=== PATIENT | female | born 1990 | race Caucasian/White ===

== ENCOUNTER 2024-03-25 11:27 | Emergency (ER) | payer OTHER ==
[~2024-03-25] VITALS: Ht 157.5 cm; Wt 83.9 kg
[2024-03-25 11:51] VITALS: BP 126/94; PULSE 72; RESP 16; TEMP 97.6; O2SAT 99
[2024-03-25] MEDS: KETOROLAC 30 MG/ML VIAL IM ONE (13:07)
[2024-03-25] MEDS: BACITRACIN OINT 500 UNITS/GM PKT TP ONE (13:09)
[2024-03-25] MEDS ORDERED: BACI-418 TP (13:41)
[2024-03-25] MEDS ORDERED: IBUP-2213 PO (13:41)
[2024-03-25 13:48] VITALS: BP 122/92; PULSE 71; RESP 14; TEMP 98; O2SAT 98
== END 2024-03-25 13:48 | disposition home or self-care (01) ==
LOC: MED 11:27
DX: T24.211A Burn of second degree of right thigh, initial encounter (principal); Z79.899 Other long term (current) drug therapy; X08.8XXA Exposure to other specified smoke, fire and flames, initial encounter; Y93.89 Activity, other specified; Y92.89 Other specified places as the place of occurrence of the external cause; Y99.8 Other external cause status
CPT/HCPCS: 16020; 81025; 90471; 90715; 96372; 99284; J1885